=== PATIENT | male | born 1960 | race Caucasian/White ===

== ENCOUNTER → 2017-07-17 | Outpatient (CLI) | payer OTHER ==
--- NOTE | 2017-07-17 15:42 | CT ---
EXAMINATION TYPE: CT chest w con DATE OF EXAM: 07/17/2017 COMPARISON: NONE HISTORY: Abnormal findings on cxr. CT DLP: 415.4 mGycm Automated exposure control for dose reduction was used. CONTRAST: CT scan of the chest is performed with IV Contrast, patient injected with 90 mL of Omnipaque 300. FINDINGS: LUNGS: Hyperinflation is compatible with COPD. Mild to moderate upper lobe emphysematous changes. Freddy cified granulomas are seen within the right middle lobe totaling 2 in number. There are also calcifie d granulomas within the right upper lobe totaling 4 in number. Left mid lung zone granuloma is also n oted. No suspicious nodules or masses are identified at this time. MEDIASTINUM: Nonspecific 1.5 cm AP window lymph node. No additional adenopathy greater than 1 cm. No pericardial effusion is seen. Thoracic aorta is of normal caliber. The heart is not enlarged. UPPER ABDOMEN: No significant abnormality appreciated. OTHER: No additional significant abnormality is seen. IMPRESSION: 1. Emphysematous changes. 2. Remote granulomatous disease. 3. Nonspecific enlarged lymph node within the AP window. Consider follow-up study in 6 months
== END | disposition home or self-care (01) ==
LOC: RADCTMAIN 15:09
PROVIDERS: ATTEND Family Medicine
DX: J43.9 Emphysema, unspecified (principal); R59.0 Localized enlarged lymph nodes
CPT/HCPCS: 71260; Q9967

== ENCOUNTER → 2018-02-07 | Outpatient (CLI) | payer OTHER ==
--- NOTE | 2018-02-07 11:37 | XR ---
Right hip and right femur HISTORY: Right hip pain 2 views of the right hip and 4 views of the right femur No comparisons There is joint space loss, marginal spurring, subchondral sclerosis present. Alignment and bone merchandise examiner alization otherwise maintained. IMPRESSION: Osteoarthritis right hip.
== END ==
LOC: RADXRMAIN 08:32
PROVIDERS: ATTEND Family Medicine
DX: M16.11 Unilateral primary osteoarthritis, right hip (principal)
CPT/HCPCS: 73502

== ENCOUNTER → 2019-01-09 | Outpatient (CLI) | payer OTHER ==
--- NOTE | 2019-01-09 09:49 | CT ---
EXAMINATION TYPE: CT chest w con DATE OF EXAM: 01/09/2019 COMPARISON: CT chest July 17, 2017. HISTORY: Localizes enlarges lymph node or hilar adenopathy per order and patient. CT DLP: 447.40 mGycm. Automated Exposure Control for Dose Reduction was Utilized. TECHNIQUE: CT scan of the thorax is performed following with IV Contrast, patient injected with 100 ml mL of Isovue 300. FINDINGS: LUNGS: There is background mild to moderate emphysematous change most prominent in lung apices bilate rally . There are scattered small calcified nodules or granulomas bilaterally most prominent in the r ight middle lobe. No suspicious greater than 4 mm noncalcified nodule or mass is identified bilateral ly. No pleural effusion or pneumothorax is present bilaterally. No suspicious consolidation or focal groundglass opacity is seen MEDIASTINUM: There are no greater than 1 cm hilar or mediastinal lymph nodes. Previously suspected en larged 1.5 cm AP window lymph node is felt to respect pericardial recess fluid axial image 31 on curr ent study. No cardiomegaly or pericardial effusion is seen. Moderate to severe coronary artery calc ification is redemonstrated which is noted marker for underlying coronary artery disease. OTHER: There is moderate to severe multilevel spurring in the mid to lower thoracic spine extending i nto the upper lumbar spine. Moderate generalized fat replaced atrophy of pancreas is present. IMPRESSION: Evidence of old granulomatous disease. No suspicious noncalcified mass or thoracic adenop athy.
== END ==
LOC: RADCTMAIN 07:03
PROVIDERS: ATTEND Family Medicine
DX: R59.0 Localized enlarged lymph nodes (principal)
CPT/HCPCS: 71260; Q9967

== ENCOUNTER → 2019-01-22 | Outpatient (CLI) | payer OTHER ==
--- NOTE | 2019-01-27 12:59 | US ---
EXAMINATION TYPE: US kidneys/renal and bladder DATE OF EXAM: 01/22/2019 COMPARISON: NONE CLINICAL HISTORY: R82.8 Abnormal urine cytology. EXAM MEASUREMENTS: Right Kidney: 9.9 x 4.2 x 4.5 cm Left Kidney: 10.1 x 5.1 x 3.8 cm Post Void Residual Volume: 151 mL Right Kidney: small cortical cyst 0.9 x 0.7 x 1.0 cm Left Kidney: No hydronephrosis or masses seen Bladder: wnl Bilateral Jets seen: Yes Normal Post Void Residual: no There is no evidence for hydronephrosis at this point in time. No nephrolithiasis is seen. The urin idris bladder is anechoic. Bilateral ureteral jets are seen. Cortical medullary differentiation is maintained. IMPRESSION: Abnormal elevation in post void residual volume. Small renal cortical cyst.
== END ==
LOC: RADUSWWP 13:39
PROVIDERS: ATTEND Family Medicine
DX: N28.1 Cyst of kidney, acquired (principal)
CPT/HCPCS: 76770

== ENCOUNTER 2019-02-27 10:41 | Day surgery (SDC) | payer OTHER ==
[2019-02-25 11:05] VITALS: BMI 29.6
[~2019-02-27 10:41] MED LIST: LACTATED RINGERS 1,000 ML IV SCH; LIDOCAINE 1% 20 ML VIAL (10MG/ML) FOR IV START INTRADERMA PRN
[2019-02-27 11:38] VITALS: TEMP 98.2
[2019-02-27] MEDS ORDERED: PROPOFOL 10 MG/ML 20 ML VIAL IV ONE (12:40)
--- NOTE | 2019-02-27 12:57 | P.PCN ---
Date of Procedure: 02/27/19 Procedure(s) Performed: BRIEF HISTORY: Patient is a 59-year-old pleasant male, scheduled for an elective colonoscopy as a part of screening for colorectal neoplasia. PROCEDURE PERFORMED: Colonoscopy. PREOPERATIVE DIAGNOSIS: Screening for colon cancer. IV sedation per Anesthesia. PROCEDURE: After informed consent was obtained, the patient, was brought into the endoscopy unit. IV sedation was administered by Anesthesia under continuous monitoring. Digital rectal examination was normal. Initially the Olympus CF-160 flexible video colonoscope was then inserted in the rectum, gradually advanced into the cecum without any difficulty. Careful examination was performed as the scope was gradually being withdrawn. Ileocecal valve and the appendiceal orifice were visualized and appeared normal. Prep was excellent. Mucosa of the cecum, ascending colon, transverse colon, descending colon, sigmoid colon, and rectum appeared normal. Scattered sigmoid diverticulosis Retroflexion was performed in the rectum and grade 2 internal hemorrhoids were seen. The patient tolerated the procedure well. IMPRESSION: Normal-appearing colon from rectum to cecum no evidence of colorectal neoplasia Scattered sigmoidal diverticulosis Grade 2 internal hemorrhoids. RECOMMENDATIONS: Findings of this examination were discussed with the patient as well as his family. He was advised to have a repeat screening colonoscopy in 10 years.
[2019-02-27 13:02] VITALS: RESP 17
[2019-02-27 13:13] VITALS: BP 104/63; PULSE 69
== END 2019-02-27 13:30 | disposition home or self-care (01) ==
LOC: ORWHC2ENDO 10:41
PROVIDERS: ATTEND Internal Medicine Gastroenterology
DX: Z12.11 Encounter for screening for malignant neoplasm of colon (principal); K57.30 Diverticulosis of large intestine without perforation or abscess without bleeding; K64.1 Second degree hemorrhoids; I10 Essential (primary) hypertension; J44.9 Chronic obstructive pulmonary disease, unspecified; F17.210 Nicotine dependence, cigarettes, uncomplicated; M19.90 Unspecified osteoarthritis, unspecified site; Z79.899 Other long term (current) drug therapy
CPT/HCPCS: J2704; G0121

== ENCOUNTER → 2019-06-01 | Outpatient (CLI) | payer OTHER ==
--- NOTE | 2019-06-01 09:13 | US ---
EXAMINATION TYPE: US prostate transrectal DATE OF EXAM: 06/01/2019 COMPARISON: NONE CLINICAL HISTORY: elevated PSA; Result 6.2. enlarged on digital exam, no urinary symptoms This examination was performed using the transrectal probe. EXAM MEASUREMENTS: Gland Size: 3.7 x 5.3 x 3.4cm Volume: 34.6ml Predicted PSA: 4.2 Actual PSA (if available):6.2 Cystic areas within seminal vesicles and calcifications within heterogeneous CZ. Focal area of hypoechogenicity seen on right portion of PZ with increased vascularity noted. Measures 1.8 x 1.3 x 0.6cm IMPRESSION: 1. Right peripheral zone 1.8 cm vascular hypoechoic nodule, appearing to be within the mid gland alth ough not labeled on images for which further evaluation with either biopsy or MRI prostate is recomme nded. 2. Findings of mild benign prostatic hyperplasia. Predicted PSA = volume x 0.12 ng/ml Calculated Volume = 0.5236 x L x W x H
== END | disposition home or self-care (01) ==
LOC: RADUSWWP 08:24
PROVIDERS: ATTEND Family Medicine
DX: N40.0 Benign prostatic hyperplasia without lower urinary tract symptoms (principal); N40.2 Nodular prostate without lower urinary tract symptoms
CPT/HCPCS: 76872

== ENCOUNTER → 2019-06-01 | Outpatient (CLI) | payer OTHER ==
[2019-06-01 17:29] LABS: Appearance,Urine Clear (Clear); Bilirubin,Urine Negative (Negative); Blood,Urine Negative (Negative); Color,Urine Yellow; Glucose,Urine (UA) Negative (Negative); INR 0.9 (<1.2); Ketones,Urine Negative (Negative); Leukocyte Esterase,Urine Negative (Negative); Nitrite,Urine Negative (Negative); PH, Urine 5.5 (5.0-8.0); Partial Thromboplastin Time 24.9 sec (22.0-30.0); Protein,Urine Trace (Negative); Prothrombin Time 9.7 sec (9.0-12.0); Specific Gravity,Urine 1.028 (1.001-1.035); Urobilinogen,Urine <2.0 mg/dL (<2.0)
[2019-06-01 17:33] LABS: Albumin 4.1 g/dL (3.5-5.0); Potassium 4.4 mmol/L (3.5-5.1); Total Bilirubin 0.6 mg/dL (0.2-1.3); Total Protein 6.6 g/dL (6.3-8.2)
[2019-06-01 17:40] LABS: HCT 38.5 % (39.0-53.0); HGB 12.5 gm/dL (13.0-17.5); MCH 32.2 pg (25.0-35.0); MCHC 32.6 g/dL (31.0-37.0); MCV 98.8 fL (80.0-100.0); Mean Platelet Volume 8.5; Platelet Count 355 k/uL (150-450); RBC 3.89 m/uL (4.30-5.90); RDW 14.5 % (11.5-15.5); WBC 7.5 k/uL (3.8-10.6)
== END | disposition home or self-care (01) ==
LOC: LABPAT 15:58
PROVIDERS: ATTEND Orthopaedic Surgery
DX: Z01.810 Encounter for preprocedural cardiovascular examination (principal); Z01.812 Encounter for preprocedural laboratory examination
CPT/HCPCS: 36415; 80053; 81003; 85027; 85610; 85730; 87070

== ENCOUNTER 2019-06-09 05:35 | Inpatient (IN) | payer OTHER ==
[~2019-06-09 05:35] MED LIST changes: +ACETAMINOPHEN TAB 500 MG TAB PO ONE; +DEXAMETHASONE SOD PHOSPHATE 10 MG/ML 1 ML VIAL IV ONE; +HYDROmorphone 0.5 MG/0.5 ML SYRINGE IVP PRN; -LACTATED RINGERS 1,000 ML IV SCH; -LIDOCAINE 1% 20 ML VIAL (10MG/ML) FOR IV START INTRADERMA PRN; +MELOXICAM 7.5 MG TAB PO ONE; +MIDAZOLAM 2 MG/2 ML VIAL IV PRN; +ONDANSETRON 4 MG/2 ML VIAL IVP ONE; +SCOPOLAMINE 1.5MG/72HR PATCH TRANSDERM ONE; +TRANEXAMIC ACID 1,000 MG in SODIUM CHLORIDE 0.9% 100 ML IVPB ONE; +ceFAZolin IN SWFI 2 GM/20 ML SYRINGE IVP ONE
[2019-06-09] MEDS ORDERED: ROPIVACAINE 246.25 MG, EPINEPHrine 0.5 MG, KETOROLAC 30 MG, cloNIDine HCL/PF 80 MCG, WA... MISCELLANE ONE ×5 (05:57)
[2019-06-09] MEDS ORDERED: LIDOCAINE 1% 20 ML VIAL (10MG/ML) FOR IV START INTRADERMA ONE (06:32)
[2019-06-09] MEDS: LACTATED RINGERS 1,000 ML IV SCH (06:32)
[2019-06-09] MEDS ORDERED: HEPARIN SODIUM,PORCINE 10,000 UNIT/ML 1 ML VIAL ONE (06:55)
[2019-06-09] MEDS ORDERED: TRANEXAMIC ACID 1,000 MG/10 ML VIAL ONE (06:55)
[2019-06-09] MEDS ORDERED: fentaNYL (PF) 50 MCG/ML 2 ML AMP ONE (06:55)
[2019-06-09] MEDS ORDERED: MIDAZOLAM 2 MG/2 ML VIAL ONE (06:55)
[2019-06-09] MEDS ORDERED: LACTATED RINGERS 1,000 ML BAG IV ONE (06:55)
[2019-06-09] MEDS ORDERED: ePHEDrine SULFATE/0.9% NACL/PF 50 MG/5 ML SYRINGE IV ONE (06:55)
[2019-06-09] MEDS ORDERED: SODIUM CHLORIDE 0.9% 100 ML BAG ONE (06:55)
[2019-06-09] MEDS ORDERED: PROPOFOL 10 MG/ML 20 ML VIAL IV ONE (06:55)
[2019-06-09] MEDS ORDERED: PHENYLEPHRINE-0.9% NACL SYG 1 MG/10 ML SYRINGE ONE (06:55)
[2019-06-09] MEDS ORDERED: MAGNESIUM HYDROXIDE 2,400 MG/10 ML CUP PO PRN (06:56)
[2019-06-09] MEDS ORDERED: HYDROcodone/APAP 5-325MG 1 EACH TAB PO PRN (06:56)
[2019-06-09] MEDS ORDERED: DIAZEPAM 5 MG TAB PO PRN (06:56)
[2019-06-09] MEDS ORDERED: hydrOXYzine PAMOATE 25 MG CAP PO PRN (06:56)
[2019-06-09] MEDS ORDERED: HYDROmorphone 0.5 MG/0.5 ML SYRINGE IVP PRN ×2 (06:56)
[2019-06-09] MEDS ORDERED: NALOXONE 0.4 MG/ML 1 ML VIAL IV PRN (06:56)
[2019-06-09] MEDS ORDERED: HYDROmorphone 1 MG/ML 1 ML SYRINGE IVP PRN (06:56)
[2019-06-09] MEDS ORDERED: ONDANSETRON 4 MG/2 ML VIAL IVP PRN (06:56)
[2019-06-09] MEDS ORDERED: ceFAZolin 3,000 MG in SODIUM CHLORIDE 0.9% IRRIGATIO 3,000 ML IRRIGATION ONE (07:44)
[2019-06-09] MEDS ORDERED: LACTATED RINGERS 1,000 ML IV ONE (08:14)
--- NOTE | 2019-06-09 08:51 | P.OP ---
Date of Procedure: 06/09/19 Preoperative Diagnosis: Severe osteoarthritis right hip Postoperative Diagnosis: Severe osteoarthritis right hip Procedure(s) Performed: Right total hip arthroplasty with a direct anterior approach Implants: [employer] Polarstem size 7 standard [employer] R3, 3 hole acetabular shell, 58 mm [employer] reflection 6.5 mm cancellus screw, 20 mm 2 [employer] R3, XLPE 20 acetabular liner [employer]hew Oxinium femoral head 36 m, +4 All components were press-fit. The articulation is Oxinium on polyethylene. Anesthesia: spinal Surgeon: Lefty Daly Customer Care Manager #1: [place] Estimated Blood Loss (ml): 200 (70 mL returned with Cell Saver) Pathology: other (Femoral head) Condition: stable Disposition: PACU Indications for Procedure: After failure of conservative treatment we discussed the surgical and nonsurgical treatment options at length. Patient wishes to proceed with a total hip arthroplasty with a direct anterior approach. Complications specific to this procedure were discussed at length, including but not limited to infection, leg length discrepancy, dislocation, and nerve injury. Patient is aware of all these complications and informed consent was obtained Operative Findings: The operative findings are consistent with severe osteoarthritis of the right hip Description of Procedure: Patient was seen and evaluated in the preoperative area, consent was reviewed, and the surgical site was marked with a skin marker. Patient was then brought to the operating room and given prophylactic antibiotics intravenously. 1 g of Tranexamic acid was also given. A spinal anesthetic was administered by the anesthesia department. The patient was then placed on the [place] table with the bony prominences well-padded. The hip area was then prepped and draped in usual sterile fashion. A universal timeout was then performed, which confirmed the patient's name, surgical site, ALLERGIES, and procedure being performed. Next the incision site was located at 1 cm distal and 1 cm lateral to the anterior superior iliac spine. The skin and subcutaneous tissues were sharply incised. Incision was carefully dissected down to the fascia overlying the tensor fascia alex muscle. This fascia was then incised in line with the incision. Next, using blunt finger dissection, the tensor fascia alex muscle was dissected off its investing fascia. The muscle was then carefully retracted laterally with a cobra retractor over the lateral neck of the femur. Next, the circumflex vessels were identified and cauterized using the AquaMantis device. The anterior hip capsule was then exposed. The capsule was then opened and an inverted T fashion. Cobra retractors were then placed intracapsularly. The proximal femur was then visualized. The femoral neck was then osteotomized appropriate level above the lesser trochanter. Small amount of traction was placed with the [place] table. A small wedge of bone was then removed from the remaining femoral head. Next, using a corkscrew femoral head was easily removed from the acetabulum. On gross visual inspection, the femoral head had complete loss of articular cartilage in mu ltiple periarticular osteophytes. Attention was then turned to the acetabulum. the acetabulum was exposed and any remaining labrum was excised. Sequential reaming of the acetabulum was performed using fluoroscopic guidance. When the appropriate size was reached, a trial was then placed. The position and fit of the trial was checked with fluoroscopy. The trial was then removed. Then, using fluoroscopic guidance, the final implant was impacted at 20 of anteversion and 40 of abduction, and fully seated in the acetabulum. 2 screws were then placed in the acetabulum. Again fluoroscopy was used to check position of the screws. Next, the liner was then impacted, with a 20 elevated liner located in the anterior superior quadrant. Component locking was confirmed. Attention was then directed to the femur. With the aid of the [place] table, the femur was externally rotated to approximately 130, extended, and abducted under the opposite leg. A side hook was then placed under the proximal femur, and the side hook elevator was used to elevate the proximal femur. Retractors were then placed. A capsular release was performed, as well as a release of the conjoined tendon, which afforded excellent visualization of the proximal femur. Next, a box osteotome was used to lateralize the proximal femur. A pattern hand was then used to locate the femoral canal. Sequential broaching was then performed with appropriate size which afforded excellent fixation in the proximal femur. A trial was then placed with appropriate head and neck, and the hip was gently reduced with the aid of the [place] table. Fluoroscopy was then used to check position of the components, as well as to ensure equal leg lengths. The hip was then gently dislocated and the trials were then removed. Final implants were then impacted and the hip was again reduced. Final fluoroscopic x-rays confirmed that the components were in anatomic position, as well as equal leg lengths. The hip was also taken through range of motion, and found to be stable. The hip was then copiously irrigated with antibiotic solution with pulsatile lavage. The hip was then irrigated with Irrisept solution. The soft tissues were then injected with a ropivacaine solution, which consisted of 246.25 mg of ropivacaine, 0.5 mg of epinephrine, 30 mg of Toradol, 80 g of clonidine, and 48.45 mL of sterile water, for a total of 100 mL of fluid injected. A second dose of 1 g of Tranexamic acid was also given. the fascia was then closed with 2-0 strata fix suture. The subcutaneous tissue was closed with 3-0 Vicryl. The subcuticular tissue was closed with 3-0 strata fix suture. The skin was then closed with Dermabond glue and a sterile silver dressing. The patient was then transferred to the recovery room in stable co ndition. The physiotherapist's assistant RUBEN Centeno was required due to the complexity of surgery, and the need for skilled surgical orderly for positioning, draping, exposure, retraction, and closure of the wound.
--- NOTE | 2019-06-09 08:51 | XR ---
EXAMINATION TYPE: XR Hip Limited RT DATE OF EXAM: 06/09/2019 COMPARISON: NONE HISTORY: Postop TECHNIQUE: One view submitted. FINDINGS: There is postsurgical change in near anatomic alignment. There is soft tissue edema and emphysema. IMPRESSION: 1. Postoperative change. Appears in near-anatomic alignment.
--- NOTE | 2019-06-09 08:54 | FL ---
EXAMINATION TYPE: FL guidance operating room DATE OF EXAM: 06/09/2019 HISTORY: Flouroscopy time 65 seconds of fluoroscopy provided. IMPRESSION: 1. Fluoroscopy time.
--- NOTE | 2019-06-09 09:38 | XR ---
EXAMINATION TYPE: XR Hip Limited RT DATE OF EXAM: 06/09/2019 COMPARISON: 02/07/2018 HISTORY: Postop TECHNIQUE: One view submitted. FINDINGS: There is postsurgical change in near anatomic alignment. There is soft tissue edema and emphysema. IMPRESSION: 1. Postoperative change. Appears in near-anatomic alignment.
[2019-06-09] MEDS: SODIUM CHLORIDE 0.9% 1,000 ML IV SCH ×2 (09:50→20:47)
[2019-06-09 10:41] VITALS: BMI 28.1
[2019-06-09] MEDS: HYDROcodone/APAP 5-325MG 1 EACH TAB PO PRN ×2 (13:38→19:51)
[2019-06-09] MEDS: ceFAZolin IN SWFI 2 GM/20 ML SYRINGE IVP SCH ×2 (16:01→23:08)
--- NOTE | 2019-06-09 17:26 | P.CONS ---
History of Present Illness - Reason for Consult Consult date: 06/09/19 Medical management Requesting physician: Lefty Daly - Chief Complaint Right hip pain - History of Present Illness Consultation: This is a very pleasant 59-year-old patient of Dr. Mejias. Chronic stable medical conditions include COPD, hypertension, spinal stenosis, osteoarthritis. Patient has just been diagnosed with what appears to be prostrate cancer. Does unweighting of prostrate biopsy. Patient has undergone a right total hip arthroplasty. Some pain is present. No nausea vomiting. No chest pain or shortness of breath. Sitting up out of bed. Review of systems: GEN.: Tired EYES: None HEENT: None NECK: None RESPIRATORY: None CARDIOVASCULAR: None GASTROINTESTINAL: None GENITOURINARY: None MUSCULOSKELETAL: Pain in some joints LYMPHATICS: None HEMATOLOGICAL: None PSYCHIATRY: None NEUROLOGICAL: None Past medical history to include: COPD, hypertension, Nithin arthritis, spinal stenosis, pending prostate biopsy for cancer Social history: Smoked less than a pack a day for close to 40 years, solorzano by trade, lives with a lady called Naheed. No significant alcohol history. Family history: Colon cancer Physical examination: VITAL SIGNS: 98.1, 67, 16, 102/68, 97% on room air GENERAL: Average built, sitting up, comfortable. EYES: Pupils equal. Conjunctiva normal. HEENT: External appearance of nose and ears normal, oral cavity grossly normal. NECK: JVD not raised; masses not palpable. HEART: First and second heart sounds are normal; no edema. LUNGS: Respiratory rate normal; clear to auscultation. ABDOMEN: Soft, nontender, liver spleen not palpable, no masses palpable. PSYCH: Alert and oriented x3; mood and affect normal. NEUROLOGICAL: Cranial nerves grossly intact; no facial asymmetry, power and sensation grossly intact. LYMPHATICS: No lymph nodes palpable in the axilla and neck MUSCULOSKELETAL: Dressing over the right hip, evidence of OA in the hands Investigations, reviewed in the clinical context: Done on 06/01/2019 White count 7.5, hemoglobin 12.5, platelets 355, potassium 4.4, bun 22, creatinine 1.08 Assessment: -Right total hip arthroplasty -Primary osteoarthritic -Essential hypertension -COPD in a current smoker not on medications -Chronic spinal stenosis -Prostate tumor pending prostate biopsy -Chronic nicotine dependence patient cigarette smoker Plan: Patient's home medications are to be renewed. Patient has been started on aspirin 325 mg twice a day for DVT prophylaxis. Pain is controlled. Care was discussed with the patient. Thank you Dr. Daly Smoke cessation counseling: This was done for the patient. He is looking for to stopping smoking. Nicotine patch to be given. More than 3 minutes was spent on this aspect of the case Past Medical History Past Medical History: COPD, Hypertension, Osteoarthritis (OA), Prostate Disorder Additional Past Medical History / Comment(s): spinal stenosis, family hx. colon cancer, recently placed on BP medication History of Any Multi-Drug Resistant Organisms: None Reported Past Surgical History: Hernia Repair, Orthopedic Surgery Additional Past Surgical History / Comment(s): right knee surg, vasectomy Past Anesthesia/Blood Transfusion Reactions: No Reported Reaction Past Psychological History: No Psychological Hx Reported Smoking Status: Current every day smoker Past Alcohol Use History: None Reported Additional Past Alcohol Use History / Comment(s): <ppd for >40 yrs. Past Drug Use History: None Reported - Past Family History Brother(s) Family Medical History: Cancer Additional Family Medical History / Comment(s): colon Medications and Allergies Home Medications Medication Instructions Recorded Confirmed Type Ibuprofen [Motrin] 600 mg PO Q6HR PRN 08/16/15 06/09/19 History Lisinopril [Zestril] 20 mg PO HS 02/25/19 06/09/19 History Allergies Allergy/AdvReac Type Severity Reaction Status Date / Time No Known Allergies Allergy Verified 06/09/19 08:54 Physical Exam Vitals: Vital Signs Temp Pulse Pulse Pulse Resp BP Pulse Ox 06/09/19 14:24 97.5 F L 72 16 100/63 96 06/09/19 12:00 68 120/70 06/09/19 11:45 54 L 121/77 06/09/19 11:30 57 L 119/73 06/09/19 11:15 59 L 110/71 06/09/19 11:00 63 102/68 06/09/19 10:45 64 107/63 06/09/19 10:30 65 102/68 06/09/19 10:15 73 114/75 06/09/19 10:00 98.1 F 67 16 102/68 97 06/09/19 09:40 72 16 102/64 95 06/09/19 09:25 66 16 101/66 96 06/09/19 09:10 75 16 95/56 95 06/09/19 08:55 96.9 F L 89 15 99/54 94 L 06/09/19 06:16 97.3 F L 68 16 154/80 96 Intake and Output 06/09/19 06/09/19 06/09/19 06:59 14:59 22:59 Intake Total 200 1691 Output Total 200 Balance 200 1491 Intake: IV 200 1451 Oral 240 Output: Estimated Blood Loss 200 Other: # Voids 1 1
[2019-06-09] MEDS: ASPIRIN 325 MG TAB PO SCH (19:51)
[2019-06-09] MEDS ORDERED: SENNOSIDES-DOCUSATE SODIUM 1 EACH TAB PO SCH (21:00)
[2019-06-09] MEDS ORDERED: LISINOPRIL 20 MG TAB PO SCH (21:00)
[2019-06-10] MEDS: HYDROcodone/APAP 5-325MG 1 EACH TAB PO PRN ×2 (02:48→08:10)
[2019-06-10 03:27] VITALS: RESP 15
[2019-06-10] MEDS: LACTATED RINGERS 1,000 ML IV SCH (04:15)
[2019-06-10] MEDS: SODIUM CHLORIDE 0.9% 1,000 ML IV SCH (04:39)
[2019-06-10 07:24] VITALS: BP 102/64; PULSE 63; TEMP 97.6
[2019-06-10 07:54] LABS: Basophils % (A) 0 %; Eosinophils # (A) 0.1 k/uL (0-0.7); Eosinophils % (A) 1 %; HGB 12.1 gm/dL (13.0-17.5); Lymphocytes # (A) 1.4 k/uL (1.0-4.8); Lymphocytes % (A) 11 %; MCH 31.6 pg (25.0-35.0); MCHC 32.6 g/dL (31.0-37.0); Monocytes % (A) 7 %; Neutrophils # (A) 10.5 k/uL (1.3-7.7); Neutrophils % (A) 80 %; Platelet Count 301 k/uL (150-450); RBC 3.81 m/uL (4.30-5.90); RDW 13.8 % (11.5-15.5)
[2019-06-10] MEDS: ASPIRIN 325 MG TAB PO SCH (08:05)
--- NOTE | 2019-06-10 08:13 | P.DS ---
Providers Date of admission: 06/09/19 05:35 Expected date of discharge: 06/10/19 Attending physician: Lefty Daly Consults: 06/09/19 06:56 Consult Physician Routine Consulting Provider: Murray Mortensen Consult Reason/Comments: medical management Do you want consulting provider notified?: Yes Primary care physician: Deangelo Sales - Discharge Diagnosis(es) (1) Osteoarthritis of right hip Current Visit: Yes Status: Acute (2) Status post total hip replacement, right Current Visit: Yes Status: Acute Hospital Course: This is a 59-year-old male with known history of degenerative arthritis of the right hip. The patient presents for evaluation. After discussion and consideration patient elects to proceed with total hip arthroplasty. The patient is seen preoperatively by Dr. Daly and medically cleared for surgery by their primary care physician. Patient is admitted to [facility] on 06/09/2019 for total hip arthroplasty. The procedures performed without complication or sequelae. The patient is doing well postoperatively. Labs and vital signs are stable on day of discharge. On day of discharge patient's hip incision is healing well. There is minimal erythema. There is no drainage noted at this time. There is minimal soft tissue swelling to the hip and thigh. Patient has full foot and ankle motion without difficulty or pain. Calf is soft and nontender to palpation. Ne urovascular status to the right lower extremity is intact. Patient is discharged home in good condition. Opioid start talking form is reviewed and signed at patient bedside. Please see med rec for accurate list of home medications. Plan - Discharge Summary Discharge Rx Participant: Yes New Discharge Prescriptions: New Aspirin 325 mg PO BID #60 tab HYDROcodone/APAP 5-325MG [[place] 5-325] 1 - 2 tab PO Q6HR PRN #56 tab PRN Reason: Pain Sennosides [Senokot] 1 tab PO BID #60 tablet No Action Ibuprofen [Motrin] 600 mg PO Q6HR PRN PRN Reason: Pain Lisinopril [Zestril] 20 mg PO HS Discharge Medication List Ibuprofen [Motrin] 600 mg PO Q6HR PRN 08/16/15 [History] Lisinopril [Zestril] 20 mg PO HS 02/25/19 [History] Aspirin 325 mg PO BID #60 tab 06/10/19 [Rx] HYDROcodone/APAP 5-325MG [[place] 5-325] 1 - 2 tab PO Q6HR PRN #56 tab 06/10/19 [Rx] Sennosides [Senokot] 1 tab PO BID #60 tablet 06/10/19 [Rx] Follow up Appointment(s)/Referral(s): Lefty Daly DO [Doctor of Osteopathic Medicine] - 2 Weeks Ambulatory/Diagnostic Orders: Walker w/ Wheels [[email or web address]] Time Frame: 3 Months, Location: None Selected Activity/Diet/Wound Care/Special Instructions: Weightbearing as tolerated with walker. Leave dressing intact. Dressing may be removed by home care nurse or by patient in 10 days. May shower with dressing on. Please follow-up with [facility] in 2 weeks and call with any questions or concerns, . Discharge Disposition: HOME WITH HOME HEALTH SERVICES
[2019-06-10] MEDS ORDERED: MELOXICAM 7.5 MG TAB PO SCH (09:00)
--- NOTE | 2019-06-10 23:50 | P.PN ---
Progress Note - Text Progress Note Date: 06/10/19 - Chief Complaint Right hip pain Interval history: This is a very pleasant 59-year-old patient of Dr. Mejias. Chronic stable medical conditions include COPD, hypertension, spinal stenosis, osteoarthritis. Patient has just been diagnosed with what appears to be prostrate cancer. Does unweighting of prostrate biopsy. Patient has undergone a right total hip arthroplasty. Today-feeling better. Pain control. Has been out of bed. Did tolerate her diet. Did work with therapy. No new issues Review of systems: Was done for constitutional, cardiovascular, GI, pulmonary. Musculoskeletal relevant finding as above Physical examination: VITAL SIGNS: 97.6, 63, 15, 102/64, 94% room air GENERAL:, sitting up, comfortable. EYES: Pupils equal. Conjunctiva normal. HEENT: External appearance of nose and ears normal, oral cavity grossly normal. NECK: JVD not raised; masses not palpable. HEART: First and second heart sounds are normal; no edema. LUNGS: Respiratory rate normal; clear to auscultation. ABDOMEN: Soft, nontender, liver spleen not palpable, no masses palpable. PSYCH: Alert and oriented x3; mood and affect normal. MUSCULOSKELETAL: Dressing over the right hip, evidence of OA in the hands Investigations, reviewed in the clinical context: White count 13 hemoglobin 12.1 Assessment: -Right total hip arthroplasty -Primary osteoarthritic -Essential hypertension -COPD in a current smoker not on medications -Chronic spinal stenosis -Prostate tumor pending prostate biopsy -Chronic nicotine dependence patient cigarette smoker -Mild leukocytosis likely reactive from surgery. No clinical evidence of infection Plan: Patient is doing well. Stable. Care was discussed. Continue current medication. Thank you Dr. Daly
== END 2019-06-10 13:21 | disposition home or self-care (01) | DRG 470 ==
LOC: 2ORMAIN 05:35 → 4SSUR 08:58
PROVIDERS: ADMIT Orthopaedic Surgery; ATTEND Orthopaedic Surgery
PROC: 0SR906A Replacement of Right Hip Joint with Oxidized Zirconium on Polyethylene Synthetic Substitute, Uncemented, Open Approach (ICD-10-PCS; principal; 2019-06-09 07:00)
DX: M16.11 Unilateral primary osteoarthritis, right hip (principal); D72.829 Elevated white blood cell count, unspecified; J44.9 Chronic obstructive pulmonary disease, unspecified; I10 Essential (primary) hypertension; M48.00 Spinal stenosis, site unspecified; F17.210 Nicotine dependence, cigarettes, uncomplicated; N42.9 Disorder of prostate, unspecified; Z80.0 Family history of malignant neoplasm of digestive organs; Z98.890 Other specified postprocedural states; Z83.3 Family history of diabetes mellitus
CPT/HCPCS: 73501; 85025; 86850; 86891; 86900; 86901; 88300; 88305

== ENCOUNTER 2020-01-19 19:12 | Emergency (ER) | payer OTHER ==
[2020-01-19 20:11] VITALS: TEMP 98.1
[2020-01-19] MEDS ORDERED: SODIUM CHLORIDE 0.9% 1,000 ML IV STA (20:57)
[2020-01-19] MEDS ORDERED: ONDANSETRON 4 MG/2 ML VIAL IVP STA (20:57)
[2020-01-19] MEDS ORDERED: MORPHINE SULFATE 4 MG/ML SYRINGE IV STA (20:57)
[2020-01-19 21:24] LABS: Basophils % (A) 0 %; Eosinophils # (A) 0.2 k/uL (0-0.7); Eosinophils % (A) 1 %; HCT 41.3 % (39.0-53.0); HGB 13.7 gm/dL (13.0-17.5); Lymphocytes # (A) 1.1 k/uL (1.0-4.8); Lymphocytes % (A) 6 %; MCH 31.6 pg (25.0-35.0); MCHC 33.1 g/dL (31.0-37.0); MCV 95.4 fL (80.0-100.0); Mean Platelet Volume 8.8; Monocytes % (A) 5 %; Neutrophils # (A) 15.4 k/uL (1.3-7.7); Neutrophils % (A) 86 %; Platelet Count 403 k/uL (150-450); RBC 4.33 m/uL (4.30-5.90); RDW 12.5 % (11.5-15.5); WBC 17.9 k/uL (3.8-10.6)
[2020-01-19 21:30] LABS: ALT 20 U/L (4-49); AST 21 U/L (17-59); African American GFR (CKD) >90 (>60 ml/min/1.73 sqM); Albumin 4.3 g/dL (3.5-5.0); Alkaline Phosphatase 87 U/L (38-126); Amylase 43 U/L (30-110); Anion Gap 11 mmol/L; Blood Urea Nitrogen 30 mg/dL (9-20); Calcium 9.3 mg/dL (8.4-10.2); Carbon Dioxide 21 mmol/L (22-30); Chloride 103 mmol/L (98-107); Glucose 128 mg/dL (74-99); Non-African American GFR(CKD) 79 (>60 ml/min/1.73 sqM); Potassium 4.7 mmol/L (3.5-5.1); Sodium 135 mmol/L (137-145)
[2020-01-19 22:45] VITALS: BP 130/72; PULSE 80; RESP 20
[2020-01-19] MEDS ORDERED: MORPHINE SULFATE 4 MG/ML SYRINGE IVP STA (23:00)
--- NOTE | 2020-01-19 23:05 | CT ---
EXAMINATION TYPE: CT abdomen pelvis w con DATE OF EXAM: 01/19/2020 COMPARISON: None HISTORY: Pelvic pain CT DLP: mGycm Automated exposure control for dose reduction was used. CONTRAST: Multiple axial sections were obtained from the diaphragm to the floor the pelvis with intravenous con trast Isovue 100 mL. FINDINGS: There is minimal subsegmental atelectasis at the lung bases. There is no pleural effusion. Heart appe ars normal. There is no pericardial effusion. Stomach appears normal. Liver spleen pancreas gallbladder appear normal. Bile ducts are not dilated. There is no adrenal mass. Kidneys show satisfactory contrast opacification. There is no hydronephrosi s. There is no retroperitoneal adenopathy. There is small amount of free fluid in the pelvis. Bladder distends smoothly. There is no inguinal hernia. There is right hip prosthesis. There is no sign of a pelvic mass. There are sigmoid diverticula. There is no sign of diverticulitis. There is no mesenteric edema. There is no ascites or free air. There is no evidence of a bowel obstru ction. Appendix is partly seen posterior and appears normal. There is a mild degenerative first-degree L4-5 spondylolisthesis. There is no lumbar compression frac ture. There is multilevel spondylotic changes with anterior spurring. The bony pelvis is intact. IMPRESSION: Normal appendix. Small amount of free fluid in the pelvis consistent with recent prostate surgery. I do not see a cause for left groin pain.
[2020-01-19 23:41] LABS: Hyaline Casts,Urine 7 /lpf (0-2); Mucus,Urine Rare /hpf; RBC,Urine 3 /hpf (0-5); WBC,Urine 41 /hpf (0-5)
[2020-01-19 23:43] LABS: Appearance,Urine Clear (Clear); Color,Urine Light Yellow; Protein,Urine Negative (Negative); Specific Gravity,Urine 1.015 (1.001-1.035)
[2020-01-19 23:44] LABS: Bilirubin,Urine Negative (Negative); Glucose,Urine (UA) Negative (Negative); Ketones,Urine Negative (Negative); Leukocyte Esterase,Urine Large (Negative); Nitrite,Urine Negative (Negative); Urobilinogen,Urine <2.0 mg/dL (<2.0)
[2020-01-19 23:46] LABS: Blood,Urine Small (Negative)
[2020-01-19] MEDS ORDERED: ACET/COD 300 MG/30 MG STARTER PACK 6 TAB BTL PO STA (23:57)
[2020-01-19] MEDS ORDERED: cefTRIAXone IN SWFI 1,000 MG/10 ML SYRINGE IVP STA (23:57)
--- NOTE | 2020-01-19 23:58 | ED ---
General Adult HPI - General Chief complaint: Urogenital Stated complaint: Pain post surgical,sweats Time Seen by Provider: 01/19/20 20:33 Source: patient Mode of arrival: ambulatory Limitations: no limitations - History of Present Illness Initial comments: 60-year-old male patient presents to the emergency department today for evaluation of left groin pain. Patient states that he developed pain to the right groin early this morning, states that it moved to encompasses his entire right and left groin region. States that he now has pain only in the left groin. He states the pain is severe. Hurts worse with movement of the left leg. Denies any radiation of the pain down his leg. Denies any numbness or tingling to his lower cavities. Denies any abdominal pain, nausea, vomiting. Denies any constipation or diarrhea. Denies any hematuria or dysuria. Patient states he is having some mild urinary incontinence. He did have a transabdominal prostatectomy on 12/24/[address] Carter at [facility]. Patient states that he had been healing well with no complications. Denies any fever or chills. Denies any redness or drainage around the incision sites. Denies any injury to the left groin that he knows of. States he has not yet back to work. Patient denies any recent rash, shortness breath, chest pain, back pain, numbness, tingling, dizziness, weakness, headache, visual changes, or any other complaints. - Related Data Home Medications Medication Instructions Recorded Confirmed Ibuprofen [Motrin] 600 mg PO Q6HR PRN 08/16/15 06/09/19 Lisinopril [Zestril] 20 mg PO HS 02/25/19 06/09/19 Previous Rx's Medication Instructions Recorded Aspirin 325 mg PO BID #60 tab 06/10/19 HYDROcodone/APAP 5-325MG [[place] 1 - 2 tab PO Q6HR PRN #56 tab 06/10/19 5-325] Sennosides [Senokot] 1 tab PO BID #60 tablet 06/10/19 Acetaminophen-Codeine 300-30mg 1 tab PO Q6H PRN #12 tablet 01/19/20 [Tylenol #3] Cephalexin [Keflex] 500 mg PO Q6HR #40 cap 01/19/20 Allergies Allergy/AdvReac Type Severity Reaction Status Date / Time No Known Allergies Allergy Verified 01/19/20 20:12 Review of Systems ROS Statement: Those systems with pertinent positive or pertinent negative responses have been documented in the HPI. ROS Other: All systems not noted in ROS Statement are negative. Past Medical History Past Medical History: COPD, Hypertension, Osteoarthritis (OA), Prostate Disorder Additional Past Medical History / Comment(s): spinal stenosis, family hx. colon cancer, recently placed on BP medication History of Any Multi-Drug Resistant Organisms: None Reported Past Surgical History: Hernia Repair, Orthopedic Surgery Additional Past Surgical History / Comment(s): right knee surg, vasectomy Past Anesthesia/Blood Transfusion Reactions: No Reported Reaction Past Psychological History: No Psychological Hx Reported Smoking Status: Current every day smoker Past Alcohol Use History: None Reported Past Drug Use History: None Reported - Past Family History Brother(s) Family Medical History: Cancer Additional Family Medical History / Comment(s): colon General Exam Limitations: no limitations General appearance: alert, in no apparent distress, other (This is a well- developed, well-nourished, nontoxic-appearing adult male patient in no acute d istress. Vital signs upon presentation are temperature 98.1F, pulse 85, respirations 18, blood pressure 123/79, pulse ox 97% on room air.) Eye exam: Present: normal appearance, PERRL, EOMI. Absent: scleral icterus, conjunctival injection, periorbital swelling ENT exam: Present: normal exam, normal oropharynx, mucous membranes moist Respiratory exam: Present: normal lung sounds bilaterally. Absent: respiratory distress, wheezes, rales, rhonchi, stridor Cardiovascular Exam: Present: regular rate, normal rhythm, normal heart sounds. Absent: systolic murmur, diastolic murmur, rubs, gallop, clicks GI/Abdominal exam: Present: soft, normal bowel sounds. Absent: distended, tenderness, guarding, rebound, rigid exam: Present: normal inspection, other (No groin or inguinal tenderness or redness.). Absent: testicular tenderness External exam: Present: normal external exam Neurological exam: Present: alert, oriented X3, CN II-XII intact Psychiatric exam: Present: normal affect, normal mood Skin exam: Present: warm, dry, intact, normal color. Absent: rash Course Vital Signs 01/19/20 01/19/20 01/20/20 20:07 22:43 00:21 Temperature 98.1 F 98.1 F Pulse Rate 85 80 80 Respiratory 18 20 20 Rate Blood Pressure 123/79 130/72 130/72 O2 Sat by Pulse 97 95 95 Oximetry Medical Decision Making - Medical Decision Making 60-year-old male patient presents to the emergency department today for evaluation of left groin pain. Patient did have recent prostatectomy on 12/24/2019. Incision sites appear unremarkable with no sign of infection or drainage. Left inguinal and groin region is not tender to the touch. He has i ncreased pain with movement of the left leg. Labs reviewed and did reveal leukocytosis with a white blood cell count of 17.9. Patient was a bit dehydrated with BUN of 30. Urinalysis did show sinus infection with 41 white blood cells, large leukocyte esterase, and rare mucous. This was sent for cheri spring. He'll be started on Keflex. He is given a dose of Rocephin here in the emergency department. I did discuss the case with the patient's surgeon Dr. Carter from [facility]. He feels it is unlikely his pain is related to his surgery given normal CT scan and length of time since the procedure. I did discuss findings and results with the patient. He will be given a course of pain medication. He is instructed to follow-up with his primary care physician for recheck in 1-2 days. He is instructed to follow-up with his surgeon for recheck as soon as possible. Return parameters were discussed in detail. He verbalizes understanding and agrees with this plan. - Lab Data Result diagrams: 01/19/20 21:00 01/19/20 21:00 Lab Results 01/19/20 01/19/20 01/19/20 Range/Units 21:00 21:00 21:00 WBC 17.9 H (3.8-10.6) k/uL RBC 4.33 (4.30-5.90) m/uL Hgb 13.7 (13.0-17.5) gm/dL Hct 41.3 (39.0-53.0) % MCV 95.4 (80.0-100.0) fL MCH 31.6 (25.0-35.0) pg MCHC 33.1 (31.0-37.0) g/dL RDW 12.5 (11.5-15.5) % Plt Count 403 (150-450) k/uL Neutrophils % 86 % Lymphocytes % 6 % Monocytes % 5 % Eosinophils % 1 % Basophils % 0 % Neutrophils # 15.4 H (1.3-7.7) k/uL Lymphocytes # 1.1 (1.0-4.8) k/uL Monocytes # 1.0 (0-1.0) k/uL Eosinophils # 0.2 (0-0.7) k/uL Basophils # 0.0 (0-0.2) k/uL Sodium 135 L (137-145) mmol/L Potassium 4.7 (3.5-5.1) mmol/L Chloride 103 (98-107) mmol/L Carbon Dioxide 21 L (22-30) mmol/L Anion Gap 11 mmol/L BUN 30 H (9-20) mg/dL Creatinine 1.02 (0.66-1.25) mg/dL Est GFR (CKD-EPI)AfAm >90 (>60 ml/min/1.73 sqM) Est GFR (CKD-EPI)NonAf 79 (>60 ml/min/1.73 sqM) Glucose 128 H (74-99) mg/dL Plasma Lactic Acid Archie 1.6 (0.7-2.0) mmol/L Calcium 9.3 (8.4-10.2) mg/dL Total Bilirubin 1.0 (0.2-1.3) mg/dL AST 21 (17-59) U/L ALT 20 (4-49) U/L Alkaline Phosphatase 87 (38-126) U/L Total Protein 7.0 (6.3-8.2) g/dL Albumin 4.3 (3.5-5.0) g/dL Amylase 43 (30-110) U/L Lipase <10 L (23-300) U/L Urine Color Urine Appearance (Clear) Urine pH (5.0-8.0) Ur Specific [place] Level (1.001-1.035) Urine Protein (Negative) Urine Glucose (UA) (Negative) Urine Ketones (Negative) Urine Blood (Negative) Urine Nitrite (Negative) Urine Bilirubin (Negative) Urine Urobilinogen (<2.0) mg/dL Ur Leukocyte Esterase (Negative) Urine RBC (0-5) /hpf Urine WBC (0-5) /hpf Hyaline Casts (0-2) /lpf Urine Mucus (None) /hpf 01/19/20 Range/Units 21:00 WBC (3.8-10.6) k/uL RBC (4.30-5.90) m/uL Hgb (13.0-17.5) gm/dL Hct (39.0-53.0) % MCV (80.0-100.0) fL MCH (25.0-35.0) pg MCHC (31.0-37.0) g/dL RDW (11.5-15.5) % Plt Count (150-450) k/uL Neutrophils % % Lymphocytes % % Monocytes % % Eosinophils % % Basophils % % Neutrophils # (1.3-7.7) k/uL Lymphocytes # (1.0-4.8) k/uL Monocytes # (0-1.0) k/uL Eosinophils # (0-0.7) k/uL Basophils # (0-0.2) k/uL Sodium (137-145) mmol/L Potassium (3.5-5.1) mmol/L Chloride (98-107) mmol/L Carbon Dioxide (22-30) mmol/L Anion Gap mmol/L BUN (9-20) mg/dL Creatinine (0.66-1.25) mg/dL Est GFR (CKD-EPI)AfAm (>60 ml/min/1.73 sqM) Est GFR (CKD-EPI)NonAf (>60 ml/min/1.73 sqM) Glucose (74-99) mg/dL Plasma Lactic Acid Archie (0.7-2.0) mmol/L Calcium (8.4-10.2) mg/dL Total Bilirubin (0.2-1.3) mg/dL AST (17-59) U/L ALT (4-49) U/L Alkaline Phosphatase (38-126) U/L Total Protein (6.3-8.2) g/dL Albumin (3.5-5.0) g/dL Amylase (30-110) U/L Lipase (23-300) U/L Urine Color Light Yellow Urine Appearance Clear (Clear) Urine pH 6.0 (5.0-8.0) Ur Specific [place] Level 1.015 (1.001-1.035) Urine Protein Negative (Negative) Urine Glucose (UA) Negative (Negative) Urine Ketones Negative (Negative) Urine Blood Small H (Negative) Urine Nitrite Negative (Negative) Urine Bilirubin Negative (Negative) Urine Urobilinogen <2.0 (<2.0) mg/dL Ur Leukocyte Esterase Large (Negative) Urine RBC 3 (0-5) /hpf Urine WBC 41 H (0-5) /hpf Hyaline Casts 7 H (0-2) /lpf Urine Mucus Rare H (None) /hpf - Radiology Data Radiology results: report reviewed, image reviewed CT abdomen and pelvis with contrast was obtained. Report was reviewed in its entirety. Impression by Dr. Alexander shows normal appendix. Small amount of free fluid in the pelvis consistent with recent prostate surgery. I do not see a cause for left groin pain. Disposition Clinical Impression: Urinary tract infection, Left groin pain Disposition: HOME SELF-CARE Condition: Good Instructions (If sedation given, give patient instructions): Urinary Tract Infection in Men (ED), Groin Pain (ED) Additional Instructions: Increase fluids. Rest. Take medication as directed. Follow-up with your primary care physician for recheck in 1-2 days. Follow-up with your surgeon for recheck as needed. Return to the emergency department immediately for any new, worsening, or concerning symptoms. Prescriptions: Cephalexin [Keflex] 500 mg PO Q6HR #40 cap Acetaminophen-Codeine 300-30mg [Tylenol #3] 1 tab PO Q6H PRN #12 tablet PRN Reason: Pain Is patient prescribed a controlled substance at d/c from ED?: No Referrals: Deangelo Sales MD [Primary Care Provider] - 1-2 days Time of Disposition: 23:58
== END 2020-01-20 00:39 | disposition home or self-care (01) ==
LOC: EC 19:12
DX: N39.0 Urinary tract infection, site not specified (principal); I10 Essential (primary) hypertension; M19.90 Unspecified osteoarthritis, unspecified site; N42.9 Disorder of prostate, unspecified; E86.0 Dehydration; D72.829 Elevated white blood cell count, unspecified; F17.200 Nicotine dependence, unspecified, uncomplicated; Z79.899 Other long term (current) drug therapy; Z98.52 Vasectomy status
CPT/HCPCS: 99284; 96374; 96375 ×2; 96376; 96361 ×3; 51798; 36415; 80053; 82150; 83605; 83690; 85025; 81001; 87086; 74177; J2270; J2405; J0696; Q9967

== ENCOUNTER → 2020-03-07 | Outpatient (CLI) | payer OTHER ==
[2020-03-07 09:44] LABS: African American GFR (CKD) >90 (>60 ml/min/1.73 sqM); Blood Urea Nitrogen 28 mg/dL (9-20); Non-African American GFR(CKD) 80 (>60 ml/min/1.73 sqM)
--- NOTE | 2020-03-07 11:48 | CT ---
EXAMINATION TYPE: CT pelvis w con DATE OF EXAM: 03/07/2020 COMPARISON: CT abdomen pelvis dated 01/19/2020 HISTORY: Post Prostate removal in December 2019. Pelvic pain and UTIs CT DLP: 955 mGycm Automated exposure control for dose reduction was used. CONTRAST: Performed with IV Contrast, patient injected with 100 mL of Isovue 300. FINDINGS: Utilized portions of the kidneys enhance symmetrically without gross evidence of pyelonephritis or hy dronephrosis in the inferior margins of the kidneys. Inferior margin of the liver is also unremarkabl e. There is moderate atherosclerosis of the abdominal aorta and its branches. No retroperitoneal ismael opathy (lymph node greater than 1 cm in short axis) is seen. The prostate gland is surgically absent. The urinary bladder is nondistended displaying circumferenti al urinary bladder wall thickening greatest ventrally. Wall thickening is nonspecific as this could s imply relate to incomplete distention however there is some fat stranding centrally suggesting urinar y tract infection. No surrounding abscess. No fistula seen from the colon to the urinary bladder alth ough they are closely associated such as on image 51. No air is seen within the urinary bladder. Few sigmoid colonic diverticula are present without pericolonic fat stranding. Oral contrast does not ext end into the descending colon. No dilated large or small bowel. Right hip prosthesis creates spray artifact partially extruded the pelvis. There is mild sacroiliac j oint sclerosis and multilevel facet arthropathy with mild to moderate degenerative disc disease of th e lumbosacral junction. Grade 1 anterolisthesis of L4 on L5 is redemonstrated. On delayed imaging (series 4 image 22) there is a curvilinear high density fluid collection that is e longated measuring 3.4 x 0.9 cm. IMPRESSION: URINARY BLADDER DISPLAYS VENTRALLY PREDOMINANT URINARY BLADDER WALL THICKENING AND VENTRAL MESENTERIC FAT STRANDING SUGGESTING CYSTITIS. NO EVIDENCE OF COLOVESICULAR FISTULA. CURVILINEAR FLUID DENSITY A NTERIOR TO THE URINARY BLADDER MAY REPRESENT A SMALL POSTSURGICAL SEROMA/HEMATOMA OR ABSCESS IN THE A PPROPRIATE CLINICAL SETTING. A Yellow level critical message alert has been initiated for Cris Sheriff MD via the [employer] Critical Results System on 03/07/2020 11:45 AM. This message alert has been sent to Eduar Carver via the preferences provided by the clinician for the receipt of Radiology Critical Findings. The Editorialist ID [id number].
== END | disposition home or self-care (01) ==
LOC: RADCTMAIN 08:34
PROVIDERS: ATTEND Internal Medicine Infectious Disease
DX: N32.89 Other specified disorders of bladder (principal); R93.5 Abnormal findings on diagnostic imaging of other abdominal regions, including retroperitoneum
CPT/HCPCS: 82565; 84520; 72193; 36415; Q9967

== ENCOUNTER → 2020-04-18 | Outpatient (CLI) | payer OTHER ==
--- NOTE | 2020-04-18 09:52 | CT ---
EXAMINATION TYPE: CT pelvis w con DATE OF EXAM: 04/18/2020 COMPARISON: CT pelvis dated 03/07/2020 HISTORY: follow up pelvic abscess CT DLP: 919.8 mGycm Automated exposure control for dose reduction was used. CONTRAST: Performed with IV Contrast, patient injected with 100 mL of Isovue 300. FINDINGS: Degree of anterior right lateral dominant urinary bladder wall thickening has improved from prior 03/07. This now measures up to 4 mm in greatest thickness on series 6 image 28. The fluid collection anterior right lateral to the urinary bladder previously measured approximately 3.5 x 0.9 cm and now measures approximately 2.6 x 1.0 cm, overall smaller. The degree of fat stranding surrounding this platt s also improved. Patient is status post prostatectomy. Inguinal rings are fat filled bilaterally. Few sigmoid colonic diverticula are redemonstrated. Delayed imaging demonstrates contrast in the dist al ureters extending into the urinary bladder however only a minute amount of contrast is seen within the dependent urinary bladder. Appendix is air-filled and unremarkable. Right hip prosthesis is seen as well as moderate degenerative change of the spine. Advanced multileve l facet arthropathy. Grade 1 anterolisthesis of L4 on L5 is redemonstrated. Mild atherosclerosis of t he visualized abdominal aorta and its branches. IMPRESSION: SMALLER PERIVESICULAR FLUID COLLECTION, IMPROVED URINARY BLADDER WALL ANTERIOR LATERAL ASYMMETRIC WAL L THICKENING, AND IMPROVED SURROUNDING INFLAMMATORY FAT STRANDING. FINDINGS FAVOR RESOLVING ABSCESS A LTHOUGH CONSIDERATIONS FOR POSTOPERATIVE SEROMA/HEMATOMA OR MUCH LESS LIKELY DIVERTICULUM REMAIN.
== END | disposition home or self-care (01) ==
LOC: RADCTMAIN 07:20
PROVIDERS: ATTEND Internal Medicine Infectious Disease
DX: K65.1 Peritoneal abscess (principal); N32.89 Other specified disorders of bladder; Z98.890 Other specified postprocedural states
CPT/HCPCS: 72193; Q9967

== ENCOUNTER → 2020-10-05 | Outpatient (CLI) | payer OTHER ==
--- NOTE | 2020-10-05 16:56 | CT ---
EXAMINATION TYPE: CT chest wo con DATE OF EXAM: 10/05/2020 COMPARISON: CT chest January 09, 2019 and older study July 17, 2017 HISTORY: Lung nodule. Pt c/o dyspnea since prostate sx in December. Hx COPD CT DLP: 456.20 mGycm. Automated Exposure Control for Dose Reduction was Utilized. TECHNIQUE: CT scan of the thorax is performed without IV contrast. FINDINGS: LUNGS: Background moderate underlying emphysematous change most prominent in lung apices bilaterally is redemonstrated. There are scattered small calcified nodules or granulomas bilaterally most promine nt in the mid lungs in particular right middle lobe redemonstrated. No suspicious greater than 4 mm n oncalcified nodule or mass is identified bilaterally. No pleural effusion or pneumothorax is seen katerin aterally. No suspicious new focal consolidation or focal groundglass opacity is seen bilaterally. MEDIASTINUM: Lack of IV contrast is noted to limit evaluation for mediastinal and especially hilar a denopathy. There are no new greater than 1 cm noncalcified hilar or mediastinal lymph nodes. No card iomegaly or pericardial effusion is seen. There is fairly moderate three-vessel coronary artery calci fication is redemonstrated which is noted marker for underlying coronary artery disease. OTHER: Fairly severe generalized fat replaced atrophy of the pancreas is redemonstrated. Straightenin g of spine with moderate multilevel spurring again seen. IMPRESSION: Evidence of old granulomatous disease. No new or enlarging suspicious noncalcified nodule s. Moderate emphysematous change without new acute pulmonary process.
== END | disposition home or self-care (01) ==
LOC: RADCTMAIN 16:23
PROVIDERS: ATTEND Internal Medicine Pulmonary Disease
DX: J43.9 Emphysema, unspecified (principal); D71 Functional disorders of polymorphonuclear neutrophils
CPT/HCPCS: 71250

== ENCOUNTER → 2021-05-25 | Outpatient (CLI) | payer OTHER ==
--- NOTE | 2021-05-25 12:29 | US ---
EXAMINATION TYPE: US kidneys/renal and bladder DATE OF EXAM: 05/25/2021 COMPARISON: CT 01/19/2020 CLINICAL HISTORY: R31.9 Hematuria. Pt states h/o UTI, however pt finished antibiotics and states ther e is no longer blood in his urine EXAM MEASUREMENTS: Right Kidney: 10.9 x 5.8 x 5.0 cm Left Kidney: 10.7 x 5.9 x 5.4 cm Right Kidney: Possible hyperechoic lesion lateral= 1.0 x 0.8 x 0.9 cm, lobulated contour Left Kidney: Lobulated contour, otherwise appeared wnl Bladder: wnl Bilateral Jets seen: No IMPRESSION: There is a hyperechoic lesion in the interpolar region of the right kidney measuring up to 1 cm which is indeterminate on this examination. Please consider MRI with and without contrast, renal mass prot ocol.
== END | disposition home or self-care (01) ==
LOC: RADUSWWP 11:41
PROVIDERS: ATTEND Family Medicine
DX: N28.9 Disorder of kidney and ureter, unspecified (principal)
CPT/HCPCS: 76770

== ENCOUNTER → 2021-06-07 | Outpatient (CLI) | payer OTHER ==
--- NOTE | 2021-06-07 08:57 | CT ---
EXAMINATION TYPE: CT abdomen pelvis wo con DATE OF EXAM: 06/07/2021 COMPARISON: 01/19/20 HISTORY: Other disorders of kidney and bladder CT DLP: 833.3 mGycm Examination of the solid and hollow viscera is limited given the lack of contrast. FINDINGS: LUNG BASES: No evidence for nodule. No evidence for infiltrate. LIVER/GB: The gallbladder is unremarkable. No space-occupying hepatic lesion. PANCREAS: No pancreatic mass identified. No inflammatory process seen. SPLEEN: No evidence for splenomegaly. No intrasplenic lesions seen. ADRENALS: No adrenal nodules identified. No evidence for thickening. KIDNEYS: No evidence for renal mass. No nephrolithiasis. No hydronephrosis. BOWEL: Appendix has a normal appearance. No evidence of bowel obstruction. No inflammatory process. Lymph nodes: No evidence for adenopathy greater than 1 cm. Abdominal aorta: Atheromatous changes seen. No evidence for aneurysm. Genital organs: No significant abnormality. Other: Right hip prosthesis is in place. Severe degenerative changes lumbar spine. IMPRESSION: NO SIGNIFICANT ABNORMALITY IDENTIFIED AT THIS TIME.
== END | disposition home or self-care (01) ==
LOC: RADCTMAIN 08:06
PROVIDERS: ATTEND Family Medicine
DX: N28.89 Other specified disorders of kidney and ureter (principal)
CPT/HCPCS: 74176

== ENCOUNTER → 2024-01-10 | Outpatient (CLI) | payer MEDICARE, OTHER ==
--- NOTE | 2024-01-10 09:52 | CTL ---
EXAMINATION TYPE: CT Low Dose Lung DATE OF EXAM: 01/10/2024 8:56 AM CLINICAL INDICATION:Male, 64 years old with history of Z87.891 NICOTINE DEPENDENCE; personal hx of ni cotine dependence 2ppd X 40 years not currently smoking , history of tobacco use. COMPARISON: 10/05/2020 TECHNIQUE: Multiple axial non-contrast scans were obtained from approximately the lung apices through the upper abdomen. Coronal and sagittal reformatted images were obtained. Low dose technique was uti lized. CT DLP: 129.1 mGycm, Automated exposure control for dose reduction was used. CT Contrast: Contrast used: None Oral contrast used: None FINDINGS: ======== Lack of intravenous contrast and low dose technique limits the evaluation of the vascular and soft ti ssue structures. LUNGS: No evidence of pulmonary fibrosis. No evidence of focal consolidation, pneumothorax or pleural effusion. Centrilobular emphysema changes throughout the lungs. Nodules: RUL: Scattered calcified granulomas RML: Scattered calcified granulomas RLL: None. ALESSANDRO: Calcified granuloma is 5 image 32. LLL: None. AIRWAY: Patent and unremarkable. HEART: Size within normal limits. Atherosclerosis of the arterial vasculature. MEDIASTINUM: No gross evidence of adenopathy. VASCULATURE: No aortic aneurysm. MUSCULOSKELETAL: No acute osseous abnormalities SOFT TISSUES/LYMPH NODES: Unremarkable. LOWER NECK: No significant findings. UPPER ABDOMEN: Fatty atrophy changes of the pancreatic parenchyma. IMPRESSION: 1. No clinically significant pulmonary nodules. 2. Moderate emphysema CT LUNG RAD AND CT CHEST RECOMMENDATION: Lung-Rad 2 Benign Appearance or Behavior: Continue annual sc reening with LDCT in 12 months. S Modifier (other clinically significant findings): None Recommend smoking cessation (if current smoker), or continuation of smoking cessation (if prior smoke r). Annual screening for lung cancer with low-dose computed tomography is recommended in adults ages 55 to 77 years who have a 30 pack-year smoking history and currently smoke or have quit within the pa st 15 years. Screening should be discontinued once a person has not smoked for 15 years or develops a health problem that substantially limits life expectancy or the ability or willingness to have curat rodriguez lung surgery. Lung rads 2021 [email or web address]
== END | disposition home or self-care (01) ==
LOC: RADCTMAIN 08:32
PROVIDERS: ATTEND Family Medicine
DX: Z12.2 Encounter for screening for malignant neoplasm of respiratory organs (principal); Z87.891 Personal history of nicotine dependence
CPT/HCPCS: 71271

== ENCOUNTER → 2025-02-12 | Outpatient (CLI) | payer MEDICARE ==
--- NOTE | 2025-02-12 09:31 | CTL ---
EXAMINATION TYPE: CT Low Dose Lung DATE OF EXAM ORDERED: 02/12/2025 COMPARISON: Prior low-dose lung screening CT January 10, 2024 and older chest CTs CLINICAL INDICATION: Male, 65 years old with history of Z12.2 LUNG CA SCR Z87.891 FORMER SMOKER; [facility], Former smoker. quit 2019, was 1/2 ppd x 49 years, concern for SOB, Lung cancer screening, History of Smoking/tobacco use. TECHNIQUE: Low dose computed tomography scan was performed through the chest at 1 mm thick sections a nd reconstructed images in multiple planes at 1 mm and [address] DLP: 101.[address] CTDI: 2.6 mGy Automated exposure control for dose reduction was used. CT DIAGNOSTIC QUALITY: Satisfactory FINDINGS: Nodules: Scattered small calcified nodules or benign granulomas are redemonstrated bilaterally. No ne w greater than 4 mm noncalcified pulmonary nodules LUNGS: COPD: Severity: Moderate Fibrosis: Severity: None Lymph nodes: None Other findings: None RIGHT PLEURAL SPACE: Effusion: None Calcification: None Thickening: None Pneumothorax: None LEFT PLEURAL SPACE: Effusion: None Calcification: None Thickening: None Pneumothorax: None HEART: Heart Size: Normal Coronary Calcification: Large Pericardial Effusion: Trace OTHER FINDINGS: Upper abdomen: None Bony thorax: Multilevel spurring Supraclavicular region: None Other: None IMPRESSION: Evidence of old granulomatous disease redemonstrated. No new greater than 4 mm noncalcifi ed pulmonary nodules. CT LUNG RAD AND CT CHEST RECOMMENDATION: Lung-Rad 2 Benign Appearance or Behavior: Continue annual sc reening with LDCT in 12 months. S Modifier (other clinically significant findings): S Fairly severe three-vessel coronary artery calcification remains present. Correlate with additional c ardiac risk factors advised. [facility], , 02/12/2025 9:29 AM
== END | disposition home or self-care (01) ==
LOC: RADCTMAIN 08:19
PROVIDERS: ATTEND Family Medicine
DX: Z12.2 Encounter for screening for malignant neoplasm of respiratory organs (principal); J44.9 Chronic obstructive pulmonary disease, unspecified; Z87.891 Personal history of nicotine dependence
CPT/HCPCS: 71271